=== PATIENT | male | born 1995 | race Caucasian/White ===

== ENCOUNTER 2016-07-15 13:20 | Emergency (ER) | payer OTHER ==
[2016-07-15 18:21] LABS: Hematocrit 48 % (42-52); Hemoglobin 16.3 g/dl (14.0-18.0); Mean Corpuscular HGB Conc 34 g/dl (31-36); Mean Corpuscular Hemoglobin 29 pg (27-31); Mean Corpuscular Volume 86 fL (80-94); Mean Platelet Volume 9 um3 (7.4-10.4); Red Blood Count 5.62 10^6/ul (4.0-5.4); Red Cell Distribution Width 13 % (10.5-15); White Blood Count 6.9 10^3/ul (3.5-10.8)
[2016-07-15 18:23] VITALS: BP 130/78
[2016-07-15 18:37] LABS: Albumin 4.8 g/dL (3.2-5.2); BUN/Creatinine Ratio 14.3 (8-20); C Reactive Protein 2.81 mg/L (< 5.00); Calcium 9.9 mg/dL (8.6-10.3); EGFR Non-African American 104.2 (>60); Globulin 2.5 g/dL (2-4); Total Bilirubin 0.5 mg/dL (0.2-1.0); Total Protein 7.3 g/dL (6.4-8.9)
[2016-07-15] MEDS ORDERED: Iohexol 300* (CONTRAST) 10 ML SDV IV ONE (19:07)
[2016-07-15 19:34] LABS: Urine Bacteria Absent (Absent); Urine Bilirubin Negative (Negative); Urine Glucose Negative (Negative); Urine Nitrite Negative (Negative)
--- NOTE | 2016-07-15 19:48 | RAD ---
INDICATION: Abdominal pain with nausea and vomiting. COMPARISON: Comparison is made with a prior CT of the abdomen and pelvis from November 19, 2015. TECHNIQUE: A CT scan of the abdomen and pelvis was performed with intravenous and oral contrast following intravenous injection of 150 ml of Omnipaque 300 nonionic contrast. Contiguous axial sections were obtained from the lung bases through the symphysis pubis. Images were reconstructed in the coronal and sagittal planes. FINDINGS: There is mild dependent bilateral lower lobe subsegmental atelectasis. No pleural effusion is present. The liver and spleen are within normal limits in size without significant focal abnormality. No calcified gallstones are seen. The pancreas appears to be within normal limits in size. The kidneys and adrenal glands are normal in size. No hydronephrosis is seen. No significant focal renal abnormality is seen. The aorta is normal in caliber and demonstrates homogeneous contrast opacification. There are mildly prominent retroperitoneal lymph nodes within the abdomen and mesenteric lymph nodes although not enlarged by size criteria and unchanged from the prior study. The stomach, small and large bowel appear nondistended. The appendix is within normal limits. There is no evidence for diverticulitis or colitis. No free intraperitoneal air or fluid is seen. No significant focal osseous abnormality is seen. IMPRESSION: 1. NO EVIDENCE FOR ACUTE FINDING OR CAUSE FOR THE PATIENT'S ABDOMINAL PAIN IS SEEN. 2. MILDLY PROMINENT RETROPERITONEAL AND MESENTERIC LYMPH NODES UNCHANGED FROM THE PRIOR EXAM AND LIKELY INCIDENTAL.
[2016-07-15] MEDS ORDERED: Ondansetron INJ* 2 MG/ML VIAL IV ONE (20:05)
[2016-07-15] MEDS ORDERED: Morphine INJ* 4 MG/ML 1 ML CARPUJECT IV ONE (20:06)
--- NOTE | 2016-07-15 21:17 | ED ---
Carlito Grady Billy, scribed for Rajesh Avalos MD on 07/15/16 at 1758 . Abdominal Pain/Male - HPI Summary HPI Summary: Patient is a 20 year-old male coming to [facility] with progressively worsening GI symptoms for the last 3 days. He states that he has had 3 days of N/V/D, and yesterday woke up with RLQ pain. Pain is non-radiating and constant, worse with movement and activity. Severity 7/10. He is an otherwise healthy young man. - History of Current Complaint Chief Complaint: EDAbdPain Stated Complaint: LOWER RT ABD PAIN Time Seen by Provider: 07/15/16 17:55 Hx Obtained From: Patient Onset/Duration: Gradual Onset, Lasting Days, Still Present Timing: Constant Severity Initially: Moderate Severity Currently: Moderate Pain Intensity: 7 Pain Scale Used: 0-10 Numeric Location: Discrete At: RLQ Radiates: No Aggravating Factor(s): Nothing Alleviating Factor(s): Nothing Associated Signs And Symptoms: Positive: Nausea, Vomiting, Diarrhea - Allergies/Home Medications Allergies/Adverse Reactions: Allergies Allergy/AdvReac Type Severity Reaction Status Date / Time Doxycycline Allergy Severe Anaphylatic Verified 07/15/16 13:22 Shock Peanut Oil Allergy Severe Anaphylatic Verified 07/15/16 13:22 Shock PMH/Surg Hx/FS Hx/Imm Hx Endocrine/Hematology History: Denies: Hx Diabetes, Hx Thyroid Disease Cardiovascular History: Denies: Hx Hypertension Respiratory History: Denies: Hx Asthma, Hx Chronic Obstructive Pulmonary Disease (COPD) GI History: Denies: Hx Ulcer - Surgical History Surgery Procedure, Year, and Place: Right shoulder 2011 Infectious Disease History: No Infectious Disease History: Denies: Hx Clostridium Difficile, Hx Hepatitis, Hx Human Immunodeficiency Virus (HIV), Hx of Known/Suspected MRSA, Hx Shingles, Hx Tuberculosis, Hx Known/ Suspected VRE, Hx Known/Suspected VRSA, History Other Infectious Disease, Traveled Outside the [place] in Last 30 Days - Family History Known Family History: Positive: Hypertension, Other - cancer - Social History Alcohol Use: Occasionally Substance Use Type: Reports: None Smoking Status (MU): Never Smoked Tobacco Type: Smokeless Tobacco Amount Used/How Often: 1-2 CANs/week Length of Time of Smoking/Using Tobacco: 2-3 YEARS Have You Smoked in the Last Year: Yes Review of Systems Negative: Fever Positive: Abdominal Pain, Vomiting, Diarrhea, Nausea All Other Systems Reviewed And Are Negative: Yes Physical Exam - Summary Physical Exam Summary: VITAL SIGNS: Reviewed. GENERAL: Patient is an overweight male who is lying comfortable in the stretcher. Patient is not in any acute respiratory distress. HEAD AND FACE: Normocephalic and atraumatic. EYES: PERRLA, EOMI x 2, No injected conjunctiva. EARS: Hearing grossly intact. Ear canals and tympanic membranes are WNL. MOUTH: Oropharynx within normal limits. NECK: Supple, trachea is midline, no adenopathy, no JVD. CHEST: Symmetric, no tenderness at palpation LUNGS: Clear to auscultation bilaterally. No wheezing or crackles. CVS: RRR,, S1 and S2 present, no murmurs or gallops appreciated. ABDOMEN: Soft, positive periumbilical and RLQ tenderness. No signs of distention. Positive bowel sounds. No rebound no guarding, and no masses palpated. No abdominal bruit or pulsations. EXTREMITIES: FROM in all major joints, no edema, no cyanosis or clubbing. NEURO: Alert and oriented x 3. No acute neurological deficits. Speech is normal. SKIN: Dry and warm Triage Information Reviewed: Yes Vital Signs On Initial Exam: Initial Vitals Temp Pulse Resp BP Pulse Ox 97.1 F 94 16 114/73 99 07/15/16 13:22 07/15/16 13:22 07/15/16 13:22 07/15/16 13:22 07/15/16 13:22 Vital Signs Reviewed: Yes Diagnostics - Vital Signs Vital Signs Temp Pulse Resp BP Pulse Ox 07/15/16 17:14 99.1 F 93 16 134/89 98 07/15/16 14:47 98.9 F 84 18 114/72 07/15/16 13:22 97.1 F 94 16 114/73 99 - Laboratory Result Diagrams: 07/15/16 18:00 07/15/16 18:00 Lab Statement: Any lab studies that have been ordered have been reviewed, and results considered in the medical decision making process. - CT abd/pel W CT Interpretation Completed By: Radiologist - 1. NO EVIDENCE FOR ACUTE FINDING OR CAUSE FOR THE PATIENT'S ABDOMINAL PAIN IS SEEN. 2. MILDLY PROMINENT RETROPERITONEAL AND MESENTERIC LYMPH NODES UNCHANGED FROM THE PRIOR EXAM AND LIKELY INCIDENTAL. Abdominal Pain Fem Course/Dx - Course Assessment/Plan: Patient is a 20 year-old male coming to [facility] with progressively worsening GI symptoms for the last 3 days. He states that he has had 3 days of N/V/D, and yesterday woke up with RLQ pain. Pain is non-radiating and constant, worse with movement and activity. Severity 7/10. He is an otherwise healthy young man. Test results WNL. Abd/pel CT shows no evidence for acute intraabdominal pathology as well as lymph nodes unchanged from previous CT imaging. Therefore, we ruled out acute appendicitis, diverticulitis, renal colic. In the physical exam, we did not see any signs of hernias. I believe the pain is more muscular. In the ED course, patient was given IV fluids, Zofran, and morphine with improvement of sx. Patient is hungry at this time and will be discharged to follow up with PCP. I discussed all the findings and test results with the patient Patient was instructed to return to the emergency room immediately if any of the symptoms return or worsens. They understand and agree. They were explained the possibility of an early abdominal pathology which was not detected at this time despite the physical exam and testing. They understand and agree. Abdominal exam before discharge: Soft,NT. No signs of distention. BS present. No rebound no guarding, and no masses palpated. Patient is alert and oriented. Patient is hemodynamically stable. Patient is to follow up with primary care physician in the next 24 hours. Patient and patients parents agree and understands. - Diagnoses Differential Diagnosis/HQI/PQRI: Appendicitis, Bowel Obstruction, Constipation, Diverticulitis, Renal Colic, Urinary Tract Infection Provider Diagnoses: Abdominal pain Discharge - Discharge Plan Condition: Stable Disposition: HOME Prescriptions: Naproxen TAB* [Naprosyn TAB*] 500 mg PO Q8H PRN #20 tab PRN Reason: Pain Patient Education Materials: Acute Abdominal Pain (ED) Referrals: [facility] [Outside] The documentation as recorded by the Carlito trujillo Billy accurately reflects the service I personally performed and the decisions made by me, Rajesh Avalos MD.
== END 2016-07-15 22:00 | disposition home or self-care (01) ==
LOC: ED 13:20
DX: R10.31 Right lower quadrant pain (principal); R11.2 Nausea with vomiting, unspecified; R19.7 Diarrhea, unspecified
CPT/HCPCS: 36415; 74177; 80053; 81003; 81015; 82150; 83605; 83690; 85025; 86140; 87086; 96374; 96375; 99283; J2270; J2405; Q9967

== ENCOUNTER 2016-12-19 01:22 | Emergency (ER) | payer OTHER ==
[2016-12-19] MEDS ORDERED: Tetan/Diph/Pertus SYR(Tdap)* 0.5 ML SYR(BOOSTRIX) use SYR IM ONE (05:27)
[2016-12-19] MEDS ORDERED: Cephalexin CAP* 500 MG PO ONE (05:29)
[2016-12-19 05:45] VITALS: BP 113/56
--- NOTE | 2016-12-19 07:31 | ED ---
Juan Miguel Grady Rebecca, scribed for Carter Lindsey MD on 12/19/16 at 0449 . Laceration/Wound HPI - HPI Summary HPI Summary: Pt is a 21 y/o M who presents to ED c/o R forearm laceration. Mother reports that he was at a [employer] tonight and at approximately 2300 he fell while holding some glass bottles of beer. The glass caused a laceration on the R forearm with associated pain being severe, ranked 8/10. Sx aggravated and alleviated by nothing. Additionally suspects there to be glass in the L 2nd digit. Unsure of last Tetanus shot. - History of Current Complaint Stated Complaint: FALL/RT ARM AND LT LEG LAC Time Seen by Provider: 12/19/16 04:34 Hx Obtained From: Patient, Family/Sex Therapist - Mother Onset/Duration: Lasting Hours, Still Present Aggravating: Nothing Alleviating: Nothing Current Severity: Severe Pain Intensity: 8 Pain Scale Used: 0-10 Numeric Related Hx: Recent Trauma - Fell while holding glass bottles - Allergy/Home Medications Allergies/Adverse Reactions: Allergies Allergy/AdvReac Type Severity Reaction Status Date / Time Doxycycline Allergy Severe Anaphylatic Verified 07/15/16 13:22 Shock PMH/Surg Hx/FS Hx/Imm Hx Endocrine/Hematology History: Denies: Hx Diabetes, Hx Thyroid Disease Cardiovascular History: Denies: Hx Hypertension Respiratory History: Denies: Hx Asthma, Hx Chronic Obstructive Pulmonary Disease (COPD) GI History: Denies: Hx Ulcer - Surgical History Surgery Procedure, Year, and Place: Right shoulder 2012 Infectious Disease History: No Infectious Disease History: Denies: Hx Clostridium Difficile, Hx Hepatitis, Hx Human Immunodeficiency Virus (HIV), Hx of Known/Suspected MRSA, Hx Shingles, Hx Tuberculosis, Hx Known/ Suspected VRE, Hx Known/Suspected VRSA, History Other Infectious Disease, Traveled Outside the [place] in Last 30 Days - Family History Known Family History: Positive: Hypertension, Other - cancer - Social History Alcohol Use: Occasionally Substance Use Type: Reports: None Smoking Status (MU): Never Smoked Tobacco Type: Smokeless Tobacco Amount Used/How Often: 1-2 CANs/week Length of Time of Smoking/Using Tobacco: 2-3 YEARS Have You Smoked in the Last Year: Yes Review of Systems Negative: Fever Positive: Other - Laceration to the R forearm; suspected glass in L 2nd digit All Other Systems Reviewed And Are Negative: Yes Physical Exam - Summary Physical Exam Summary: General: well-appearing, no pain distress Skin: warm, color reflects adequate perfusion, dry, superficial partial thickness laceration on the R forearm, on the L hand he has a few superficial lacerations with no glass found in any, linear laceration on the R forearm 2.5 cm in length Head: normal Eyes: EOMI, TAY ENT: normal Neck: supple, nontender Respiratory: CTA, breath sounds present Cardiovascular: RRR Abdomen: soft, nontender Bowel: present Musculoskeletal: normal, strength/ROM intact Neurological: normal, sensory/motor intact, A&O x3 Psychological: affect/mood appropriate Triage Information Reviewed: Yes Vital Signs On Initial Exam: Initial Vitals Temp Pulse Resp BP Pulse Ox 98.1 F 125 16 109/58 95 12/19/16 01:25 12/19/16 01:25 12/19/16 01:25 12/19/16 01:25 12/19/16 01:25 Vital Signs Reviewed: Yes Procedures - Laceration/Wound Repair 1 Location: upper extremity Description: Linear Anesthesia: 1.0%, Lido Length, Depth and Shape: 2.5 cm length Laceration/Wound Explored: clean - Cleaned with sterile saline Closure: Single Layer Suture Type: Nylon - 4.0 Number of Sutures: 6 Diagnostics - Vital Signs Vital Signs Temp Pulse Resp BP Pulse Ox 12/19/16 03:31 98.1 F 110 16 109/58 98 12/19/16 01:25 98.1 F 125 16 109/58 95 - Laboratory Lab Statement: Any lab studies that have been ordered have been reviewed, and results considered in the medical decision making process. - Radiology R Hand XR Xray Interpretation: No Acute Changes - No FB seen Radiology Interpretation Completed By: ED Physician R Forearm XR Xray Interpretation: No Acute Changes - No FB seen Radiology Interpretation Completed By: ED Physician Laceration Repair Course/Dx - Course Assessment/Plan: Pt is a 21 y/o M who presents to ED c/o R forearm laceration after falling while holding glass bottles at 2300. Associated pain is severe, ranked 8/10. Sx aggravated and alleviated by nothing. Additionally suspects there to be glass in the L 2nd digit. Unsure of last Tetanus shot. R Forearm XR and R Hand XR reveal no FB. Laceration sutured. Tetanus shot was given. NO CRITICAL CARE TIME. DISCHARGE HOME STABLE. - Clinical Impression Provider Diagnoses: Laceration of forearm, right Discharge - Discharge Plan Condition: Stable Disposition: HOME Prescriptions: Cephalexin CAP* [Keflex CAP*] 500 mg PO TID #20 cap Patient Education Materials: Care For Your Stitches (ED), Laceration (ED) Referrals: No Primary Care Phys,NOPCP [Primary Care Provider] - Additional Instructions: FOLLOW UP WITH YOUR DOCTOR. SUTURES OUT IN 8-10 DAYS. YOU RECEIVED YOUR TETANUS SHOT TODAY IN THE EMERGENCY DEPARTMENT. RETURN TO THE EMERGENCY DEPARTMENT FOR ANY WORSENING OF YOUR CONDITION; SIGNS OF INFECTION OR QUESTIONS OR CONCERNS. The documentation as recorded by the Juan Miguel trujillo Rebecca accurately reflects the service I personally performed and the decisions made by me, Carter Lindsey MD.
--- NOTE | 2016-12-19 08:00 | RAD ---
HISTORY: Laceration, evaluate for foreign body, right forearm COMPARISONS: None VIEWS: 2, Frontal and lateral views of the right forearm FINDINGS: BONE DENSITY: Normal. BONES: There is no displaced fracture. JOINTS: There is no arthropathy. ALIGNMENT: There is no dislocation. SOFT TISSUES: Unremarkable. OTHER FINDINGS: There is no radiopaque foreign body IMPRESSION: NO ACUTE OSSEOUS INJURY. NO RADIOPAQUE FOREIGN BODY. IF SYMPTOMS PERSIST, RECOMMEND REPEAT IMAGING.
--- NOTE | 2016-12-19 08:01 | RAD ---
HISTORY: Laceration, evaluate for foreign body of the right hand COMPARISONS: None VIEWS: 4, Frontal, lateral, and oblique views of the right hand FINDINGS: BONE DENSITY: Normal. BONES: There is no displaced fracture. JOINTS: There is no arthropathy. There is no radiopaque foreign body ALIGNMENT: There is no dislocation. SOFT TISSUES: Unremarkable. OTHER FINDINGS: None. IMPRESSION: NO ACUTE OSSEOUS INJURY. NO RADIOPAQUE FOREIGN BODY. IF SYMPTOMS PERSIST, RECOMMEND REPEAT IMAGING.
== END 2016-12-19 05:45 | disposition home or self-care (01) ==
LOC: ED 01:22
DX: S51.811A Laceration without foreign body of right forearm, initial encounter (principal); W01.110A Fall on same level from slipping, tripping and stumbling with subsequent striking against sharp glass, initial encounter; Y93.89 Activity, other specified; Y92.9 Unspecified place or not applicable; Z23 Encounter for immunization; Z88.1 Allergy status to other antibiotic agents; F17.220 Nicotine dependence, chewing tobacco, uncomplicated
CPT/HCPCS: 12001; 90471; 90715; 99282; A9270-GY

== ENCOUNTER 2017-12-19 12:37 | Emergency (ER) | payer SELFPAY ==
[2017-12-19 12:55] VITALS: BP 128/93
--- NOTE | 2017-12-19 13:10 | UC ---
Respiratory Complaint HPI - HPI Summary HPI Summary: 22 y/o male presents to the urgent care c/o sore throat w/ B/L ear pain and nasal congestion w/ yellowish nasal discharge for the past 3 days. Pt reports he took Dayquill P the first day and symptoms were getting better until yesterday when he developed cough w/ yellowish phlegm and mild wheezing. No Hx of asthma. Pain w/ swallowing is 8/10 and he took an ASA this morning to alleviate symptoms. Pt request strep test since he had it in the past and father has similar symptoms. Pt denies fever, SOB, chest pain, abdominal pain, ALBRECHT, N/V/D. - History of Current Complaint Chief Complaint: UCRespiratory Stated Complaint: THROAT,EARS,CHEST CONGESTION,WHEEZING Time Seen by Provider: 12/19/17 12:59 Hx Obtained From: Patient Onset/Duration: Gradual Onset, Lasting Days - 3 days, Still Present, Worse Since - yesterday Timing: Intermittent Episodes Severity Initially: Mild Severity Currently: Moderate Pain Intensity: 6 - sore throat and ear pain Pain Scale Used: 0-10 Numeric Character: Cough: Productive, Sputum Description: - yellowish Aggravating Factors: Recumbent Position Alleviating Factors: OTC Meds - Dayquill PO Associated Signs And Symptoms: Positive: Wheezing - mild, URI, Nasal Congestion - Risk Factors Pulmonary Embolism Risk Factors: Negative Cardiac Risk Factors: Negative Pseudomonas Risk Factors: Negative Tuberculosis Risk Factors: Negative - Allergies/Home Medications Allergies/Adverse Reactions: Allergies Allergy/AdvReac Type Severity Reaction Status Date / Time doxycycline Allergy Anaphylatic Verified 12/19/17 12:56 Shock PMH/Surg Hx/FS Hx/Imm Hx Previously Healthy: Yes - Pt denies PMHX - Surgical History Surgical History: Yes Surgery Procedure, Year, and Place: Right shoulder 2011 - Family History Known Family History: Positive: Hypertension Family History: cancer - Social History Occupation: Employed Full-time Lives: With Family Alcohol Use: Occasionally Substance Use Type: None Smoking Status (MU): Never Smoked Tobacco Type: Smokeless Tobacco Amount Used/How Often: 1-2 CANs/week Length of Time of Smoking/Using Tobacco: 2-3 YEARS Have You Smoked in the Last Year: Yes - Immunization History Vaccination Up to Date: Yes Review of Systems Constitutional: Negative Skin: Negative Eyes: Negative ENT: Sore Throat, Ear Ache - RT ear, Nasal Discharge, Sinus Congestion, Sinus Pain/Tenderness Respiratory: Cough, Other - mild wheezing Cardiovascular: Negative Gastrointestinal: Negative Genitourinary: Negative Motor: Negative Neurovascular: Negative Musculoskeletal: Negative Neurological: Negative Psychological: Negative Is Patient Immunocompromised?: No All Other Systems Reviewed And Are Negative: Yes Physical Exam - Summary Physical Exam Summary: Vital Signs Reviewed: Yes General: well developed, well nourished male sitting in the examining table w/o any apparent distress Eyes: Positive: Conjunctiva Clear - PERRLA, EOMI, fundi grossly normal ENT: Positive: Normal ENT inspection, Hearing grossly normal, Pharynx w/ erythema, no exudate,No B/l tonislar enlargement or exudate. edematous and erythematous nasal mucosa w/ green nasal discharge. Maxiallry and frontal sinus tender on percussion. Rt external ear canal clear, RT TM injected w/ erythema, LF external ear canal clear, LF TM WNL. Neck: Positive: Supple, Nontender, No Lymphadenopathy Respiratory: no orthopnea or dyspnea. Able to speak in full sentences, no retractions or accessory muscle use, no tripod position, stridor, or head bobbing. CTA bilaterally, mild wheezing in the left upper posterior lung , no crackles , rhonchi, rales. Cardiovascular: Positive: RRR, No Murmur, Pulses Normal, Brisk Capillary Refill Abdomen Description: Positive: Nontender, No Organomegaly, Soft. Negative: CVA Tenderness (R), CVA Tenderness (L) Bowel Sounds: Positive: Present Musculoskeletal Exam: Normal Musculoskeletal: Positive: Strength Intact, ROM Intact, No Edema Neurological Exam: Normal Psychological Exam: Normal Skin Exam: Normal Triage Information Reviewed: Yes Vital Signs: Initial Vital Signs Temp 98.0 F 12/19/17 12:53 Pulse 120 12/19/17 12:53 Resp 18 12/19/17 12:53 BP 128/93 12/19/17 12:53 Pulse Ox 98 12/19/17 12:53 Diagnostic Evaluation - Laboratory O2 Sat by Pulse Oximetry: 98 Respiratory Course/Dx - Course Course Of Treatment: 22 y/o male presents to the urgent care c/o sore throat w/ B/L ear pain and nasal congestion w/ yellowish nasal discharge for the past 3 days. Pt reports he took Dayquill P the first day and symptoms were getting better until yesterday when he developed cough w/ yellowish phlegm and mild wheezing. No Hx of asthma. Pain w/ swallowing is 8/10 and he took an ASA this morning to alleviate symptoms. Pt request strep test since he had it in the past and father has similar symptoms. Pt denies fever, SOB, chest pain, abdominal pain, ALBRECHT, N/V/D. Hx obtained. Pt w/ Rt otitis media and acute sinusinusitis on examination. Pt also w/ mild wheeaing on the left upper posterior lung. O2Sat: 98%. Rapid strep ordered: negative. Pt given albuterol nebulizer treatment. Pt tolerated well treatment and lungs clear off and Pt felt better. Pt Rx Amoxicillin PO, Ibuprofen PO and albuterol inhaler to alleviate symptoms. Discharge instructions explained to Pt. Advised to Return to the clinic or PCP if symptoms do not improve.Pt's BP is elevated today advised to decrease salt in diet, monitor BP and f/u with PCP for further management.Pt understood and agreed with plan of care. - Differential Dx/Diagnosis Differential Diagnosis/HQI/PQRI: Asthma, Bronchitis, Influenza, Laryngitis, Sinusitis, Other - pharyngitis, ottis meida or externa Provider Diagnoses: 1- RT otitis media. 2- Acute sinusitis. 3-Wheezing. 4- Elevated BP w/o Hx of HTN Discharge - Sign-Out/Discharge Documenting (check all that apply): Patient Departure - D/C home - Discharge Plan Condition: Stable Disposition: HOME Prescriptions: Albuterol HFA INHALER* [Ventolin HFA Inhaler*] 1 - 2 puff INH Q6H PRN #1 mdi PRN Reason: Wheezing Amoxicillin PO (*) [Amoxicillin 875 MG (*)] 875 mg PO BID #20 tab Ibuprofen TAB* [Motrin TAB* 600 MG] 600 mg PO Q6H PRN #20 tab PRN Reason: otalgia Patient Education Materials: Pharyngitis (ED), Ear Infection (ED), Low-Sodium Diet (ED) Forms: *Work Release Referrals: [facility] [Outside] - 3 Days Additional Instructions: 1- Please take the full course of the antibiotic to avoid resistance. 2-Please take ibuprofen PO q6-8hrs prn as instructed after meals to alleviate pain and swelling. Increase fluid intake, eat well, rest and avoid strenuous exercise 3- Use the albuterol inhaler as directed to alleviate wheezing and cough 4-If symptoms do not improve or worsen please return to the urgent care or f/u with your PCP in 3 days for further evaluation and treatment. 5-Your BP is elevated today. please decrease salt in your diet, monitor BP and if it continues to be elevated please f/u with your PCP for further management - Billing Disposition and Condition Condition: STABLE Disposition: Home
[2017-12-19] MEDS ORDERED: Albuterol 2.5 MG/3 ML NEB.SOL* (0.083%) INH ONE (13:19)
== END 2017-12-19 14:10 | disposition home or self-care (01) ==
LOC: UCEAST 12:37
DX: H66.91 Otitis media, unspecified, right ear (principal); J01.90 Acute sinusitis, unspecified; R06.2 Wheezing; R03.0 Elevated blood-pressure reading, without diagnosis of hypertension; H92.02 Otalgia, left ear; Z88.1 Allergy status to other antibiotic agents
CPT/HCPCS: 87651; 99212; G0463

== ENCOUNTER 2019-04-12 16:47 | Emergency (ER) | payer OTHER ==
[2019-04-12 17:00] VITALS: BP 122/80
[2019-04-12 18:54] LABS: Influenza A Molecular NEGATIVE (Negative); Influenza B Molecular NEGATIVE (Negative)
--- NOTE | 2019-04-12 18:56 | UC ---
FLU HPI - HPI Summary HPI Summary: 23-year-old male presents with 2 day history of general malaise, fatigue, chills , nasal congestion, sore throat, and a dry nonproductive cough. Denies ear pain , dysphagia, chest pain, or shortness of breath. - History of Current Complaint Chief Complaint: UCRespiratory Stated Complaint: SORE THROAT, ACHES Time Seen by Provider: 04/12/19 18:23 Hx Obtained From: Patient Pain Intensity: 6 - Allergy/Home Medications Allergies/Adverse Reactions: Allergies Allergy/AdvReac Type Severity Reaction Status Date / Time doxycycline Allergy Anaphylatic Verified 04/12/19 17:01 Shock Home Medications: Home Medications D-Methorphan/PE/Acetaminophen [Vicks Dayquil Cold & Flu] 1 cap PO ONCE 04/12/19 [History Confirmed 04/12/19] Ibuprofen TAB* [Motrin TAB* 600 MG] 400 mg PO Q6H PRN 04/12/19 [History Confirmed 04/12/19] PMH/Surg Hx/FS Hx/Imm Hx Previously Healthy: Yes - Denies significant PMH - Surgical History Surgical History: Yes Surgery Procedure, Year, and Place: Right shoulder 2011 - Family History Known Family History: Positive: Hypertension, Other - cancer Family History: cancer - Social History Occupation: Employed Full-time Lives: With Family Alcohol Use: Weekly Substance Use Type: None Smoking Status (MU): Never Smoked Tobacco Type: Smokeless Tobacco Amount Used/How Often: 1-2 CANs/week Length of Time of Smoking/Using Tobacco: 2-3 YEARS Have You Smoked in the Last Year: Yes - Immunization History Vaccination Up to Date: Yes Review of Systems All Other Systems Reviewed And Are Negative: Yes Constitutional: Positive: Chills, Fatigue Skin: Negative: Rash Eyes: Negative: Drainage, Eye Redness ENT: Positive: Sore Throat. Negative: Ear Ache Respiratory: Positive: Cough. Negative: Shortness Of Breath Cardiovascular: Negative: Chest Pain Gastrointestinal: Negative: Abdominal Pain, Vomiting, Diarrhea, Nausea Genitourinary: Positive: Negative Musculoskeletal: Positive: Myalgia Neurological: Positive: Negative Is Patient Immunocompromised?: No Physical Exam - Summary Physical Exam Summary: GENERAL APPEARANCE: Well developed, well nourished, alert and cooperative, and appears to be in no acute distress. EYES: Conjunctiva clear. No drainage. EARS: External auditory canals and tympanic membranes clear, hearing grossly intact. NOSE: Mild-moderate nasal congestion. No nasal discharge. THROAT: Pharyngeal erythema without tonsilar inflammation, swelling, exudate, or lesions. Uvula midline. NECK: Neck supple, non-tender without lymphadenopathy. CARDIAC: Normal S1 and S2. No S3, S4 or murmurs. Rhythm is regular. There is no peripheral edema, cyanosis or pallor. Extremities are warm and well perfused. Capillary refill is less than 2 seconds. Peripheral pulses intact. LUNGS: Clear to auscultation without rales, rhonchi, wheezing or diminished breath sounds. Dry, non-productive cough. ABDOMEN: Positive bowel sounds. Soft, nondistended, nontender. No guarding or rebound. No masses or hepatosplenomegally. MUSKULOSKELETAL: ROM intact to all extremities. No joint erythema or tenderness. Normal muscular development. Normal gait. SKIN: Skin normal color, texture and turgor with no lesions or eruptions. Triage Information Reviewed: Yes Vital Signs: Initial Vital Signs Temp 99.7 F 04/12/19 16:55 Pulse 94 04/12/19 16:55 Resp 16 04/12/19 16:55 BP 122/80 04/12/19 16:55 Pulse Ox 98 04/12/19 16:55 Vital Signs Reviewed: Yes Flu Course/Dx - Course Course Of Treatment: 23-year-old male presents with 2 day history of general malaise, fatigue, chills , nasal congestion, sore throat, and a dry nonproductive cough. Denies ear pain , dysphagia, chest pain, or shortness of breath. Afebrile. Vital signs stable. Patient and mild to moderate nasal congestion, pharyngeal erythema without tonsillar swelling or exudate, no cervical lymphadenopathy, clear bilateral breath sounds, dry nonproductive cough, and otherwise unremarkable exam. Rapid strep and rapid flu tests were negative. Recommending symptomatic treatment for a viral URI. He is to follow-up with his primary care provider in 5-7 days symptoms are not improving. Anticipatory guidance and warning symptoms reviewed with the patient. Verbalizes understanding and agrees with plan of care. - Differential Dx/Diagnosis Differential Diagnosis/HQI/PQRI: Bronchitis, Influenza, Pneumonia, Upper Respiratory Infection Provider Diagnosis: Viral URI with cough Discharge ED - Sign-Out/Discharge Documenting (check all that apply): Patient Departure All imaging exams completed and their final reports reviewed: No Studies - Discharge Plan Condition: Stable Disposition: HOME Prescriptions: Benzonatate CAP* [Tessalon 100 MG CAP*] 100 mg PO TID PRN #21 cap PRN Reason: Cough Patient Education Materials: Upper Respiratory Infection (ED) Forms: *Work Release Referrals: Pau Temple MD [Primary Care Provider] - 5 Days Additional Instructions: Your history and exam are consistent with a viral upper respiratory infection. Viral infections do not respond to antibiotics and are limited to the treatment of symptoms. Viral infections typically run their course in 7-10 days. Drink plenty of fluids to avoid dehydration especially if you are running any fever. Use an over the counter decongestant such as Sudafed to help with the congestion. Take Tessalon Perles 1 cap every 8 hours as needed for cough. Take over the counter acetaminophen (Tylenol) or ibuprofen (Advil, Motrin) according to directions as needed for pain or fever. Use salt water gargles several times a day if you have a sore throat. You may also use Chloraseptic spray or Cepacol lonzenges according to directions which contain a numbing medication and can provide some temporary relief from your sore throat. Follow up with your primary care provider in 5-7 days if symptoms persist. Seek immediate medical attention in the emergency room if you have fever greater than 100.5 F despite taking acetaminophen or ibuprofen, have chest pain , difficulty breathing, are unable to swallow, or have any worsening of symptoms. - Billing Disposition and Condition Condition: STABLE Disposition: Home
== END 2019-04-12 19:20 | disposition home or self-care (01) ==
LOC: UCEAST 16:47
DX: J06.9 Acute upper respiratory infection, unspecified (principal); R05 Cough; M79.10 Myalgia, unspecified site; Z88.1 Allergy status to other antibiotic agents
CPT/HCPCS: 87651; 99212; G0463

== ENCOUNTER 2019-08-03 18:22 | Emergency (ER) | payer OTHER ==
[2019-08-03] MEDS ORDERED: NS 0.9% 1000 ML** 1,000 ML IV ONE ×2 (18:32)
[2019-08-03 19:06] LABS: ABS Basophils 0.1 10^3/ul (0-0.2); ABS Eosinophils 0.2 10^3/ul (0-0.6); ABS Lymphocytes 2.2 10^3/ul (1.0-4.8); ABS Monocytes 0.7 10^3/ul (0-0.8); ABS Neutrophils 5.1 10^3/ul (1.5-7.7); Eosinophil % 2.7 %; Hematocrit 48 % (42-52); Hemoglobin 16.9 g/dL (14.0-18.0); Mean Corpuscular HGB Conc 35 g/dL (31-36); Mean Corpuscular Hemoglobin 30 pg (27-31); Mean Corpuscular Volume 86 fL (80-94); Mean Platelet Volume 8.9 fL (7.4-10.4); Nucleated Red Blood Cells % 0.1; Platelet Count 275 10^3/uL (150-450); Red Blood Count 5.63 10^6 /uL (4.18-5.48); Red Cell Distribution Width 14 % (10-15); White Blood Count 8.3 10^3/uL (3.5-10.8)
[2019-08-03 19:20] LABS: ALT 28 U/L (7-52); Albumin 4.8 g/dL (3.2-5.2); Albumin/Globulin Ratio 1.9 (1-3); Alkaline Phosphatase 54 U/L (34-104); BUN/Creatinine Ratio 15.5 (8-20); Blood Urea Nitrogen 15 mg/dL (6-24); CO2 Carbon Dioxide 22 mmol/L (22-32); Calcium 9.5 mg/dL (8.6-10.3); Chloride 107 mmol/L (101-111); EGFR African American 114.1 (>60); EGFR Non-African American 94.3 (>60); Globulin 2.5 g/dL (2-4); Glucose 119 mg/dL (70-100); Sodium 137 mmol/L (135-145); Total Protein 7.3 g/dL (6.4-8.9)
--- NOTE | 2019-08-03 19:35 | ED ---
HPI Cardiac - HPI Summary HPI Summary: Patient is a 23 y/[facility]. Patient states that he has been experiencing N/V for the past few days. He went to [facility] urgent care and was noted to have a HR in the 180s, patient was advised to come to ED for evaluation. On our puldse ox here he had a HR of 180 BPM in triage; this went up to 240s. Patient brought to room, provider called to room to evaluate. When placed on carpenter cradle and dolly in room, patient's HR is noted to be in 110-120s. Patient denies CP or palpitations. No abdominal pain. He denies daily medications and Hx of cardiac disease. However, FMHx of cardiac disease is reported. Home medications and allergies are reviewed. Home Medications Medication Instructions Recorded Confirmed Type Ibuprofen TAB* [Motrin TAB* 600 MG] 400 mg PO Q6H PRN 04/12/19 08/03/19 History Ondansetron ODT TAB* [Zofran 4 MG 4 mg PO Q8H PRN 4 Days #12 tab.odt 08/03/19 Rx Odt TAB*] - History of Current Complaint Chief Complaint: EDDysrhythmPalp Stated Complaint: FAST HR/FLUIDS PER PT Hx Obtained From: Patient Timing: Intermittent Pain Intensity: 5 Pain Scale Used: 0-10 Numeric Associated Signs and Symptoms: Positive: Nausea, Vomiting, Other: - positive - elevated HR. Negative: Chest Pain, Palpitations - Allergy/Home Medications Allergies/Adverse Reactions: Allergies Allergy/AdvReac Type Severity Reaction Status Date / Time doxycycline Allergy Anaphylatic Verified 04/12/19 17:01 Shock Home Medications: Home Medications Ibuprofen TAB* [Motrin TAB* 600 MG] 400 mg PO Q6H PRN 04/12/19 [History Confirmed 08/03/19] Ondansetron ODT TAB* [Zofran 4 MG Odt TAB*] 4 mg PO Q8H PRN 4 Days #12 tab.odt 08/03/19 [Rx] PMH/Surg Hx/FS Hx/Imm Hx Endocrine/Hematology History: Denies: Hx Diabetes, Hx Thyroid Disease Cardiovascular History: Denies: Hx Hypertension Respiratory History: Denies: Hx Asthma, Hx Chronic Obstructive Pulmonary Disease (COPD) GI History: Denies: Hx Ulcer - Surgical History Surgery Procedure, Year, and Place: Right shoulder 2012 Infectious Disease History: No Infectious Disease History: Denies: Hx Clostridium Difficile, Hx Hepatitis, Hx Human Immunodeficiency Virus (HIV), Hx of Known/Suspected MRSA, Hx Shingles, Hx Tuberculosis, Hx Known/ Suspected VRE, Hx Known/Suspected VRSA, History Other Infectious Disease, Traveled Outside the [place] in Last 30 Days - Family History Known Family History: Positive: Cardiac Disease, Hypertension, Other - cancer Family History: cancer - Social History Alcohol Use: Weekly Substance Use Type: Reports: None Smoking Status (MU): Never Smoked Tobacco Type: Smokeless Tobacco Amount Used/How Often: 1-2 CANs/week Length of Time of Smoking/Using Tobacco: 2-3 YEARS Have You Smoked in the Last Year: Yes Review of Systems Cardiovascular: Other - positive - elevated HR Negative: Palpitations, Chest Pain Positive: Vomiting, Nausea All Other Systems Reviewed And Are Negative: Yes Physical Exam - Summary Physical Exam Summary: Constitutional: Well-developed, Well-nourished, Alert. (-) Distressed Skin: Warm, Dry HENT: Normocephalic; Atraumatic; Dry MM Eyes: Conjunctiva normal Neck: Musculoskeletal ROM normal neck. (-) JVD, (-) Stridor, (-) Nuchal rigidity Cardio: Tachycardic, Heart sounds normal; Intact distal pulses; Radial pulses are 2+ and symmetric. (-) Murmur Pulmonary/Chest wall: Effort normal. (-) Respiratory distress, (-) Wheezes, (-) Rales Abd: Soft, (-) tenderness, (-) Distension, (-) Guarding, (-) Rebound Musculoskeletal: (-) Edema Lymph: (-) Cervical adenopathy Neuro: Alert, Oriented x3 Psych: Mood and affect Normal Triage Information Reviewed: Yes Vital Signs On Initial Exam: Initial Vitals Pulse BP Pulse Ox 180 143/107 95 08/03/19 18:23 08/03/19 18:23 08/03/19 18:23 Vital Signs Reviewed: Yes Procedures - Sedation Patient Received Moderate/Deep Sedation with Procedure: No Diagnostics - Vital Signs Vital Signs Pulse Resp BP Pulse Ox 08/03/19 19:00 23 08/03/19 18:59 20 106/82 08/03/19 18:40 17 125/95 08/03/19 18:29 23 169/114 08/03/19 18:28 24 02/21/20 18:23 180 143/107 95 - Laboratory Lab Results: Lab Results 08/03/19 08/03/19 Range/Units 18:38 18:38 WBC 8.3 (3.5-10.8) 10^3/uL RBC 5.63 H (4.18-5.48) 10^6 /uL Hgb 16.9 (14.0-18.0) g/dL Hct 48 (42-52) % MCV 86 (80-94) fL MCH 30 (27-31) pg MCHC 35 (31-36) g/dL RDW 14 (10-15) % Plt Count 275 (150-450) 10^3/uL MPV 8.9 (7.4-10.4) fL Neut % (Auto) 61.7 % Lymph % (Auto) 27.0 % [place] % (Auto) 7.9 % Eos % (Auto) 2.7 % Baso % (Auto) 0.7 % Absolute Neuts (auto) 5.1 (1.5-7.7) 10^3/ul Absolute Lymphs (auto) 2.2 (1.0-4.8) 10^3/ul Absolute Monos (auto) 0.7 (0-0.8) 10^3/ul Absolute Eos (auto) 0.2 (0-0.6) 10^3/ul Absolute Basos (auto) 0.1 (0-0.2) 10^3/ul Absolute Nucleated RBC 0.0 10^3/ul Nucleated RBC % 0.1 Sodium 137 (135-145) mmol/L Potassium Pending Chloride 107 (101-111) mmol/L Carbon Dioxide 22 (22-32) mmol/L Anion Gap Pending BUN 15 (6-24) mg/dL Creatinine 0.97 (0.67-1.17) mg/dL Est GFR ( Amer) 114.1 (>60) Est GFR (Non-Af Amer) 94.3 (>60) BUN/Creatinine Ratio 15.5 (8-20) Glucose 119 H (70-100) mg/dL Calcium 9.5 (8.6-10.3) mg/dL Total Bilirubin 0.40 (0.2-1.0) mg/dL AST Pending ALT 28 (7-52) U/L Alkaline Phosphatase 54 (34-104) U/L Total Protein 7.3 (6.4-8.9) g/dL Albumin 4.8 (3.2-5.2) g/dL Globulin 2.5 (2-4) g/dL Albumin/Globulin Ratio 1.9 (1-3) Result Diagrams: 08/03/19 18:38 08/03/19 19:48 Lab Statement: Any lab studies that have been ordered have been reviewed, and results considered in the medical decision making process. - EKG 1829 Cardiac Rate: Tachycardia - rate of 117 BPM EKG Rhythm: Sinus Tachycardia Summary of EKG Findings: EKG showed sinus tachycardia with rate of 117 BPM, no STEMI. ED physician has reviewed and interpreted this EKG. Re-Evaluation - Re-Evaluation First Eval Re-Evaluation Time: 19:45 Change: Improved - resting, NAD. Disposition - Course Course Of Treatment: 23 y/o M p/w concern for tachycardia urgent care. Patient reportedly had heart of 240 however on our monitor here he is around 110. Suspect that patient's elevated heart rate is false and from double counting or HR on his pulse ox (this also happened here in triage). Patient was observed on the monitor, had heart rates between 99 and 120, given 2 L of fluids. Labs show any evidence of acute infection. Suspect viral syndrome. Given Zofran. - Diagnoses Provider Diagnoses: Nausea & vomiting, Tachycardia Discharge ED - Sign-Out/Discharge Documenting (check all that apply): Patient Departure - discharge - Discharge Plan Condition: Stable Disposition: HOME Prescriptions: Ondansetron ODT TAB* [Zofran 4 MG Odt TAB*] 4 mg PO Q8H PRN 4 Days #12 tab.odt PRN Reason: Nausea/Vomiting Patient Education Materials: Acute Nausea and Vomiting (ED) Forms: *Work Release Referrals: Pau Temple MD [Primary Care Provider] - Additional Instructions: You were seen in emergency department for nausea vomiting.. Please drink lots of fluids including water or Gatorade. Please return to emergency department if you have worsening pain, continued vomiting and diarrhea and unable to drink fluids, continued fevers or if you're concerned. Please take Zofran as needed every 8 hours or vomiting. If any lab studies are completed at time of discharge, you'll be called with the relevant results. Please follow up with her primary care doctor in next 1-2 days. It was a pleasure taking care of you today! - Billing Disposition and Condition Condition: STABLE Disposition: Home - Attestation Statements Document Initiated by Ranjan: Yes Documenting Scribe: FIDENCIO ZAMUDIO Provider For Whom Ranjan is Documenting (Include Credential): MARITZA TOWNSEND MD Scribe Attestation: I, FIDENCIO ZAMUDIO, scribed for MARITZA TOWNSEND MD on 08/03/19 at 2146. Scribe Documentation Reviewed: Yes Provider Attestation: The documentation as recorded by the FIDENCIO trujillo accurately reflects the service I personally performed and the decisions made by me, MARITZA TOWNSEND MD Status of Scribe Document: Viewed
[2019-08-03 19:36] LABS: Anion Gap 8 mmol/L (2-11)
[2019-08-03 20:36] VITALS: BP 127/74
== END 2019-08-03 20:35 | disposition home or self-care (01) ==
LOC: ED 18:22
DX: R00.0 Tachycardia, unspecified (principal); R11.2 Nausea with vomiting, unspecified; F17.290 Nicotine dependence, other tobacco product, uncomplicated; Z88.1 Allergy status to other antibiotic agents
CPT/HCPCS: 36415; 80053; 85025; 93005; 96360; 99282